=== PATIENT | female | born 1970 | race Caucasian/White ===

== ENCOUNTER 2016-08-02 21:40 | Emergency (ER) | payer OTHER ==
[~2016-08-02] VITALS: Ht 157.5 cm; Wt 72.7 kg
[2016-08-02] MEDS ORDERED: HYDROmorphone 1 MG/ML, 1ML ONE (22:42)
[2016-08-02] MEDS ORDERED: KETOROLAC 30 MG/1 ML ONE (22:42)
[2016-08-02] MEDS ORDERED: ONDANSETRON ODT 4 MG ONE (22:42)
[2016-08-02 23:00] LABS: BLOOD UREA NITROGEN 7 mg/dL (7-18)
[2016-08-02] MEDS ORDERED: KETOROLAC 30 MG/1 ML IM ONE (23:00)
[2016-08-02] MEDS ORDERED: HYDROmorphone 1 MG/ML, 1ML IM ONE (23:00)
[2016-08-02] MEDS ORDERED: ONDANSETRON ODT 4 MG PO ONE (23:00)
[2016-08-02 23:18] VITALS: BP 137/79
[2016-08-02 23:52] LABS: PATH.CAST-FLAG NOT PRESENT; SPERM-FLAG NOT PRESENT; SRC-FLAG NOT PRESENT; XTAL-FLAG NOT PRESENT; YLC-FLAG NOT PRESENT
== END 2016-08-03 01:29 | disposition home or self-care (01) ==
LOC: ED 23:59
DX: N83.202 Unspecified ovarian cyst, left side (principal); N83.201 Unspecified ovarian cyst, right side; Z90.49 Acquired absence of other specified parts of digestive tract
CPT/HCPCS: 36415; 76830; 80048; 81001; 82040; 84703; 85025; 87086; 96372; 99285; J1170; J1885; Q0162

== ENCOUNTER 2016-11-02 05:17 | Day surgery (SDC) | payer OTHER ==
[~2016-11-02] VITALS: Ht 157.5 cm; Wt 71.7 kg
[~2016-11-02 05:17] MED LIST: CYCL-259 PO; HYDR-3237 PO; HYDR12.58 PO; MELO7.5T31 PO; OMEP40CA6 PO; TRAM50TA2 PO
[2016-11-02 06:01] VITALS: BP 127/90
[2016-11-02] MEDS ORDERED: LIDOCAINE 1%, 2ML ONE (06:10)
[2016-11-02 06:27] LABS: HCG UR OBC PASS
[2016-11-02] MEDS ORDERED: LIDOCAINE 1%, 2ML SQ PRN (06:30)
[2016-11-02] MEDS ORDERED: LACTATED RINGERS 1,000 ML IV SCH (06:30)
[2016-11-02] MEDS ORDERED: MIDAZOLAM 1 MG/ML, 2ML ONE (06:44)
[2016-11-02] MEDS ORDERED: FENTANYL PF 100 MCG/2ML ONE ×3 (06:45→10:47)
[2016-11-02] MEDS ORDERED: BUPIVACAINE/PF 0.25% ONE (06:51)
[2016-11-02] MEDS ORDERED: FLUORESCEIN SODIUM 500 MG/5 ML ONE (06:51)
[2016-11-02] MEDS ORDERED: THROMBIN 5,000 UNIT VIAL TP ONE (06:51)
[2016-11-02] MEDS ORDERED: GABAPENTIN 300 MG CAPSULE PO STA (06:57)
[2016-11-02] MEDS ORDERED: OxyconTIN ER 20 MG TAB.ER PO STA (06:57)
[2016-11-02] MEDS ORDERED: ACETAMINOPHEN 500 MG TABLET PO STA (06:57)
[2016-11-02] MEDS ORDERED: GABAPENTIN 300 MG CAPSULE ONE (07:00)
[2016-11-02] MEDS ORDERED: ACETAMINOPHEN 500 MG TABLET ONE (07:00)
[2016-11-02] MEDS ORDERED: OxyconTIN ER 10 MG TAB.ER ONE (07:03)
[2016-11-02] MEDS ORDERED: GLYCOPYRROLATE 0.2MG/1ML ONE (07:08)
[2016-11-02] MEDS ORDERED: NEOSTIGMINE 1 MG/ML, 10ML ONE (07:08)
[2016-11-02] MEDS ORDERED: KETOROLAC 30 MG/1 ML ONE (07:08)
[2016-11-02] MEDS ORDERED: ROCURONIUM 10 MG/ML ONE (07:08)
[2016-11-02] MEDS ORDERED: SUCCINYLCHOLINE 20 MG/ML, 10ML ONE (07:08)
[2016-11-02] MEDS ORDERED: CEFAZOLIN 1,000 MG ONE (07:08)
[2016-11-02] MEDS ORDERED: PROPOFOL 10 MG/ML, 20ML ONE (07:08)
[2016-11-02] MEDS ORDERED: ONDANSETRON 2MG/ML, 2ML ONE (07:08)
[2016-11-02] MEDS ORDERED: NEOMY/POLYMYXIN B GU IRR. 1 ML IRRIG ONE (07:40)
[2016-11-02] MEDS ORDERED: KETAMINE 10 MG/ML, 20ML ONE (07:49)
[2016-11-02] MEDS ORDERED: HYDROmorphone 2 MG/ML, 1ML ONE (07:49)
[2016-11-02] MEDS ORDERED: HYDROmorphone 1 MG/ML, 1ML IV PRN (08:00)
[2016-11-02] MEDS ORDERED: ALBUTEROL/IPRATROPIUM 2.5MG/0.5MG, 3 ML NPPB PRN (08:00)
[2016-11-02] MEDS ORDERED: EPHEDRINE 50 MG/ML, 1ML IVPush PRN (08:00)
[2016-11-02] MEDS ORDERED: MIDAZOLAM 1 MG/ML, 2ML IV PRN (08:00)
[2016-11-02] MEDS ORDERED: ONDANSETRON 2MG/ML, 2ML IVPush PRN ×2 (08:00→15:00)
[2016-11-02] MEDS ORDERED: PROMETHAZINE 25 MG/ML, 1ML IV PRN (08:00)
[2016-11-02] MEDS ORDERED: LABETALOL 5MG/ML, 20ML IV PRN (08:00)
[2016-11-02] MEDS ORDERED: hydrALAzine 20 MG/ML, 1ML IV PRN (08:00)
[2016-11-02] MEDS ORDERED: OXYcodone 5 MG/5 ML ORAL.SOL UDC PO PRN (08:00)
[2016-11-02] MEDS ORDERED: ALBUTEROL SULFATE 2.5 MG/3 ML NPPB PRN (08:00)
[2016-11-02] MEDS ORDERED: MEPERIDINE/PF 25MG/0.5ML IVPush PRN (08:00)
[2016-11-02] MEDS ORDERED: METOPROLOL 1 MG/ML, 5ML IV PRN (08:00)
[2016-11-02] MEDS ORDERED: HYDROcodone/APAP 7.5-325MG/15ML UDC PO PRN (08:00)
[2016-11-02] MEDS ORDERED: FENTANYL PF 100 MCG/2ML IV PRN (08:00)
[2016-11-02] MEDS ORDERED: OXYcodone 5 MG/5 ML ORAL.SOL UDC ONE (10:47)
[2016-11-02] MEDS ORDERED: OXYcodone/APAP 5/325MG TABLET PO PRN (15:00)
[2016-11-02] MEDS ORDERED: IBUPROFEN 600 MG TABLET PO PRN (16:00)
[2016-11-02] MEDS ORDERED: PROMETHAZINE 25 MG SUPP PR PRN (17:30)
== END 2016-11-02 18:25 ==
LOC: OUT 05:17
PROVIDERS: ATTEND Obstetrics & Gynecology
DX: N92.0 Excessive and frequent menstruation with regular cycle (principal); N83.209 Unspecified ovarian cyst, unspecified side; N81.4 Uterovaginal prolapse, unspecified; N39.3 Stress incontinence (female) (male); I10 Essential (primary) hypertension; E78.5 Hyperlipidemia, unspecified; E66.9 Obesity, unspecified; Z90.49 Acquired absence of other specified parts of digestive tract; Z98.51 Tubal ligation status; Z98.890 Other specified postprocedural states
CPT/HCPCS: 36415; 57288; 58552; 81025; 85014; 85018; 86850; 86900; 88307; C1771; J0330; J0690; J1170; J1885; J2250; J2405; J2704; J2710; J3010; J3490; J7120